=== PATIENT | female | born 1995 | race American Indian/Alaskan Native ===

== ENCOUNTER 2021-01-24 08:25 | Inpatient (IN) | payer OTHER ==
[2021-01-24] MEDS ORDERED: fentaNYL 100 MCG/2 ML INJ IV PRN (09:52)
[2021-01-24] MEDS ORDERED: BUTORPHANOL 2 MG/1 ML INJ IV PRN (09:52)
[2021-01-24] MEDS ORDERED: ePHEDrine SULFATE 50 MG/1 ML INJ IV PRN ×2 (09:52→15:00)
[2021-01-24] MEDS ORDERED: LACTATED RINGERS 1,000 ML ONE (10:03)
[2021-01-24] MEDS ORDERED: ONDANSETRON 4 MG/2 ML INJ IV PRN ×2 (10:30→17:26)
[2021-01-24] MEDS ORDERED: LIDOCAINE (2%) 20 MG/1 ML VIAL 20 ML MDV INFILTRATI SCH (10:30)
[2021-01-24] MEDS ORDERED: TERBUTALINE 1 MG/1 ML INJ SUB-Q PRN (10:30)
[2021-01-24 10:42] LABS: Hematocrit 35.5 % (30.3-42.9); Hemoglobin 12.1 gm/dl (10.1-14.3); Mean Corpuscular HGB Conc 34 % (30-34); Mean Corpuscular Volume 102 fl (79-97); Platelet Count 203 K/mm3 (140-440); Red Blood Count 3.48 M/mm3 (3.65-5.03); Red Cell Distribution Width 14.7 % (13.2-15.2)
[2021-01-24] MEDS: OXYTOCIN DRIP 30 UNITS/500 ML BAG IV SCH ×5 (10:49→17:45)
[2021-01-24] MEDS: LACTATED RINGERS 1,000 ML IV SCH (10:49)
[2021-01-24] MEDS ORDERED: MINERAL OIL 30 ML ORAL LIQD PO PRN (11:00)
[2021-01-24] MEDS ORDERED: OXYTOCIN DRIP 30 UNITS/500 ML BAG IV SCH (11:00)
--- NOTE | 2021-01-24 13:03 | History and Physical Report ---
History of Present Illness Date of examination: 01/24/21 Date of admission: 01/24/21 08:25 Chief complaint: Induction of labor secondary to post-date History of present illness: 25 yo, @ 42.0 wk gestation, initiated care with by [facility] at 8.4 wks gestation. Her has been complicated by anemia and post-date . She presents to [facility] after failed attempts to naturally induce at home. She reports positive FM. Denies any VB. Leaking of clear fluids noted at 1030 this AM. Labs: A+, antibody negative; HBsAg negative; HIV negative; rubella immune; VDRL negtive; GC/Chlamydia negative; urine culture negative; 1 hr gtt - 97; GBS negative. Past History Past Medical History: other (anemia) Family/Genetic History: cancer Social history: single, smoking (former smoker; exposed to second-hand marijuana smoke daily) - Obstetrical History Expected Date of Delivery: 01/10/21 Actual Gestation: 42 Week(s) 0 Day(s) : 2 Para: 0 Hx # Term Pregnancies: 0 Number of Pregnancies: 0 Spontaneous Abortions: 0 Induced : 1 Number of Living Children: 0 Medications and Allergies Allergies Allergy/AdvReac Type Severity Reaction Status Date / Time No Known Allergies Allergy Unverified 01/24/21 10:05 Active Meds: Active Medications Butorphanol Tartrate (Butorphanol 2 Mg/1 Ml Inj) 2 mg IV Q2H PRN PRN Reason: Pain , Severe (7-10) Last Admin: 01/24/21 10:48 Dose: 2 mg Documented by: Ephedrine Sulfate (Ephedrine Sulfate 50 Mg/1 Ml Inj) 10 mg IV Q2M PRN PRN Reason: Hypotension Fentanyl (Fentanyl 100 Mcg/2 Ml Inj) 100 mcg IV Q2H PRN PRN Reason: Pain,Severe (7-10) LABOR PAIN Oxytocin/Sodium Chloride (Pitocin/Ns 30 Unit/500ml) 30 units in 500 mls @ 2 mls/hr IV TITR ALLYN; Protocol Last Admin: 01/24/21 12:18 Dose: 2 ml/hr, 2 mls/hr Documented by: Lactated Ringer's (Lactated Ringers) 1,000 mls @ 125 mls/hr IV DIRECT ALLYN Last Admin: 01/24/21 10:49 Dose: 125 mls/hr Documented by: Oxytocin/Sodium Chloride (Pitocin/Ns 30 Unit/500ml) 30 units in 500 mls @ 40 mls/hr IV TITR ALLYN; Protocol Lidocaine (Lidocaine (2%) 20 Mg/1 Ml Vial 20 Ml Mdv) 20 ml INFILTRATI ONCE ALLYN Stop: 01/25/21 10:29 Mineral Oil (Mineral Oil 30 Ml Oral Liqd) 30 ml PO QHS PRN PRN Reason: Constipation Ondansetron HCl (Ondansetron 4 Mg/2 Ml Inj) 4 mg IV Q8H PRN PRN Reason: Nausea And Vomiting Terbutaline Sulfate (Terbutaline 1 Mg/1 Ml Inj) 0.25 mg SUB-Q ONCE PRN PRN Reason: Hyperstimulation/Hypertonicity Review of Systems All systems: negative - Vital Signs Vital signs: Vital Signs Temp Pulse Resp BP 98.2 F 83 15 121/73 01/24/21 09:57 01/24/21 09:57 01/24/21 09:57 01/24/21 09:57 Temp Pulse Resp BP Pulse Ox 98.2 F 83 15 121/73 01/24/21 09:57 01/24/21 09:57 01/24/21 09:57 01/24/21 09:57 - Physical Exam Breasts: Positive: normal Cardiovascular: Regular rate Lungs: Positive: Normal air movement Uterus: Positive: enlarged (S=D) Deep Tendon Reflex Grade: Normal +2 - Obstetrical FHR: category 1 Uterine Contraction Monitor Mode: External Cervical Dilatation: 2 (per RN) Cervical Effacement Percentage: 80 (Pitocin @ 4mu/min) station: -2 Uterine Contraction Duration: 2-5 Uterine Contraction Pattern: Irregular Uterine Tone Measurement Phase: Resting Uterine Contraction Intensity: Mild Results Result Diagrams: 01/24/21 09:00 Abnormal lab results 01/24/21 Range/Units 09:00 RBC 3.48 L (3.65-5.03) M/mm3 MCV 102 H (79-97) fl MCH 35 H (28-32) pg All other labs normal. Assessment and Plan - Patient Problems (1) Post-dates Current Visit: Yes Status: Acute Plan to address problem: Admit to L & D Pitocin titration as tolerated Pain meds as desired per orders Anticipate
[2021-01-24] MEDS ORDERED: fentaNYL-BUPIV 2 MCG/ML-0.125% 200 MCG/100 ML BAG EPIDURAL ONE (14:02)
--- NOTE | 2021-01-24 14:26 | Progress Note ---
Labor Epidural - Labor Epidural Start Time: 14:05 Stop Time: 14:12 Performed by:: JOAQUIM SEVERINO Procedure: Patient is requesting epidural for labor pain. H&P, and labs reviewed. Procedure explained, questions answered, consent obtained. Patient in sitting position with blood pressure cuff and pulse ox on and working. Timeout performed immediately before start of procedure. Sterile chlorahexadine 0.5% prep/drape. 3 mL 1% lidocaine skin wheal at L[3]-L[4]. 18-gauge Tuohy epidural needle advanced to [id number] with saline at [7] cm. Epidural dexmedetomidine [30] mcg administered. Epidural catheter advanced to [12] cm, negative aspiration for blood and csf, negative test dose 3 ml 1.5% lidocaine with epinephrine. Sterile steri-strips and tegaderm applied, followed by tape reinforcement. Patient tolerated procedure well.
--- NOTE | 2021-01-24 14:26 | Anesthesia Consultation ---
Anesthesia Consult and Med Hx Date of service: 01/24/21 - Airway Anesthetic Teeth Evaluation: Good ROM Head & Neck: Adequate Mental/Hyoid Distance: Adequate Mallampati Class: Class II Intubation Access Assessment: Probably Good - Pulmonary Exam CTA: Yes - Cardiac Exam Cardiac Exam: RRR - Pre-Operative Health Status ASA Pre-Surgery Classification: ASA3 Proposed Anesthetic Plan: Epidural - Pulmonary Hx Smoking: Yes Hx Asthma: No COPD: No Hx Pneumonia: No - Cardiovascular System Hx Hypertension: No - Central Nervous System Hx Seizures: No Hx Psychiatric Problems: No - Endocrine Hx Renal Disease: No Hx End Stage Renal Disease: No Hx Hypothyroidism: No Hx Hyperthyroidism: No - Hematic Hx Anemia: No Hx Sickle Cell Disease: No - Other Systems Hx Alcohol Use: No Hx Substance Use: Yes (Marijuana)
[2021-01-24] MEDS: fentaNYL-BUPIV 2 MCG/ML-0.125% 200 MCG/100 ML BAG EPIDURAL SCH ×2 (14:52→23:08)
[2021-01-24] MEDS ORDERED: NALOXONE 2 MG/2 ML INJ IV PRN (15:00)
[2021-01-24] MEDS ORDERED: ACETAMINOPHEN 325 MG TAB PO PRN ×2 (17:26→22:41)
[2021-01-24] MEDS ORDERED: diphenhydrAMINE 25 MG CAP PO PRN (17:26)
[2021-01-24] MEDS ORDERED: MAGNESIUM HYDROXIDE (MOM) ORAL LIQD UDC PO PRN (17:26)
[2021-01-24] MEDS ORDERED: BENZOCAINE/MENTHOL 20/0.5% TOP SPRAY 56 GM TP PRN (17:26)
[2021-01-24] MEDS ORDERED: LANOLIN/ZINC/DIMETHICONE (LANSINOH) 7 GM TP PRN ×2 (17:26)
[2021-01-24] MEDS ORDERED: oxyCODONE /ACETAMINOPHEN 5-325MG TAB PO PRN (17:26)
[2021-01-24] MEDS ORDERED: HYDROCORTISONE 25 MG RECTAL SUPP PR PRN (17:26)
[2021-01-24] MEDS ORDERED: PROMETHAZINE 25 MG RECT SUPP PR PRN (17:26)
[2021-01-24] MEDS ORDERED: WITCH HAZEL/ GLYCERIN PAD TP PRN (17:26)
[2021-01-24] MEDS ORDERED: PROMETHAZINE 25 MG TAB PO PRN (17:26)
--- NOTE | 2021-01-24 17:34 | Procedure Note ---
OB Delivery Note - Delivery Date of Delivery: 01/24/21 Surgeon: JOY HILL JR Estimated blood loss: 500cc - Vaginal Delivery presentation: vertex (vertex/vertex) Delivery position: OA Intrapartum events: hemorrhage (s/p methergine x 1), uterine atony Delivery induction: AROM (x2) Delivery augmentation: rupture of membranes, pitocin Delivery monitor: external FHT Route of delivery: Delivery placenta: spontaneous Episiotomy: none Delivery laceration: other (1 degree periurethral, not repaired) Anesthesia: epidural Delivery comments: Delivery of male infant at 1701 with subsequent delivery of female at 1705. The cord with cut by FOB x 2. The umbillical cord with clamped x 2. Spontaneous delivery of placenta. Given mild uterine atony, methergine x 1 was given. Small periurethral laceration was noted and found not be bleeding actively. Did not repair. 1701, Male, 9/9 APGARS, 2359g, 18.75 inches 1705, female, 8/9 APGARS 2549g, 18.25 inches - Infant A at 1 minute: 9 at 5 minutes: 9 Gender: Male B at 1 minute: 8 at 5 minutes: 9 Infant Gender: Female
[2021-01-24] MEDS ORDERED: IBUPROFEN 600 MG TAB PO SCH (18:00)
[2021-01-24] MEDS ORDERED: SENNOSIDES/DOCUSATE SODIUM 8.6/50 MG TAB PO SCH (18:00)
[2021-01-24] MEDS ORDERED: DOCUSATE SODIUM 100 MG CAP PO SCH (22:00)
[2021-01-24] MEDS ORDERED: FERROUS SULFATE 325 MG TAB PO SCH (22:00)
[2021-01-24] MEDS ORDERED: AMPICILLIN/NS 2 GM/100 ML 2 GM/100 ML BAG IV ONE (22:48)
[2021-01-24] MEDS ORDERED: ACETAMINOPHEN 325 MG TAB ONE (22:57)
[2021-01-25] MEDS ORDERED: METOCLOPRAMIDE 10 MG/2 ML INJ ONE (00:26)
[2021-01-25] MEDS ORDERED: FAMOTIDINE 20 MG/2 ML INJ IV ONE ×2 (00:26→01:27)
[2021-01-25] MEDS ORDERED: SODIUM CHLORIDE 0.9% IRR 1,500 ML BOTTLE IR ONE (00:37)
[2021-01-25] MEDS ORDERED: WATER FOR IRRIG STERILE 1,500 ML BOTTLE IR ONE (00:37)
[2021-01-25] MEDS ORDERED: CLINDAMYCIN IV ONE (00:55)
[2021-01-25] MEDS ORDERED: PHENYLEPHRINE/NS 1,000 MCG/10 ML SYRINGE (OR USE) IV ONE (00:56)
[2021-01-25] MEDS ORDERED: BUPIVACAINE /DEX-WATER 0.75% (2 ML) AMPULE INFILTRATI ONE (00:56)
[2021-01-25] MEDS ORDERED: KETOROLAC 30 MG/1 ML INJ ONE (00:56)
[2021-01-25] MEDS ORDERED: ceFAZolin/STERILE WATER 2 GM/20 ML SYRINGE IV NR (01:00)
[2021-01-25] MEDS ORDERED: FAMOTIDINE 20 MG/2 ML INJ IV NR (01:00)
[2021-01-25] MEDS ORDERED: LACTATED RINGERS 1,000 ML ONE (01:06)
[2021-01-25] MEDS ORDERED: BUPIVACAINE/PF (0.5%) 5 MG/1 ML 30 ML VIAL INFILTRATI ONE (01:06)
[2021-01-25] MEDS ORDERED: OXYTOCIN 10 UNIT/1 ML INJ ONE (01:18)
[2021-01-25] MEDS ORDERED: METOCLOPRAMIDE 10 MG/2 ML INJ IV ONE (01:26)
[2021-01-25] MEDS ORDERED: BICITRA ORAL LIQD 30ML PO ONE (01:26)
[2021-01-25] MEDS ORDERED: HYDROCORTISONE 25 MG RECTAL SUPP PR PRN (01:55)
[2021-01-25] MEDS ORDERED: MAGNESIUM HYDROXIDE (MOM) ORAL LIQD UDC PO PRN (01:55)
[2021-01-25] MEDS ORDERED: NALOXONE 0.4 MG/1 ML INJ IV PRN (01:55)
[2021-01-25] MEDS ORDERED: SIMETHICONE 80 MG CHEW TAB PO PRN (01:55)
[2021-01-25] MEDS ORDERED: PROMETHAZINE 25 MG RECT SUPP PR PRN (01:55)
[2021-01-25] MEDS ORDERED: LANOLIN/ZINC/DIMETHICONE (LANSINOH) 7 GM TP PRN (01:55)
[2021-01-25] MEDS ORDERED: WITCH HAZEL/ GLYCERIN PAD TP PRN (01:55)
[2021-01-25] MEDS ORDERED: ACETAMINOPHEN 325 MG TAB PO PRN (01:55)
[2021-01-25] MEDS ORDERED: MORPHINE 4 MG/1 ML INJ IV PRN (01:55)
[2021-01-25] MEDS ORDERED: oxyCODONE /ACETAMINOPHEN 5-325MG TAB PO PRN (01:55)
[2021-01-25] MEDS ORDERED: ONDANSETRON 4 MG/2 ML INJ IV PRN (01:55)
[2021-01-25] MEDS ORDERED: SENNOSIDES 8.6 MG TAB PO PRN (01:55)
--- NOTE | 2021-01-25 01:58 | Procedure Note ---
OB Delivery Note - Delivery Date of Delivery: 01/25/21 Surgeon: JOY HILL JR Estimated blood loss: other (700cc) - Section Preop diagnosis: nonreassuring FHR tracing Postop diagnosis: same section procedure: section, primary low transverse Disposition: PACU Complications: none Narrative: Indication: 25 yo, A1 @ 42.0 wk gestation, initiated care with by [facility] at 8.4 wks gestation c/b anemia and Class II Obesity presenting for postdates IOL, failed 2/2 non-reassuring heart notes and chorioamnionitis on ampicillin, gentamicin, and clindamycin, now for primary c section. Findings: Normal uterus, tubes and ovaries. Clear fluid. No nuchal cord. Delivery of male at 0114 Weight 3636g Height 20 inches APGARS 8/9 EBL 700cc IVF 1000 cc UOP 100cc Procedure: Patient was taken to the operating room prepped and draped in the usual sterile fashion. Pfannenstiel skin incision was made and carried down to the underlying fascia. Fascia was incised and the incision was distended bilaterally. Rectus fascia was dissected off the rectus muscle superiorly and inferiorly. Peritoneum was identified and entered. Peritoneal incision extended superiorly and inferiorly. The bladder was visualized. The bladder blade was placed. Uterine hysterotomy incision was made and extended bilaterally. The baby was delivered in the typical vertex fashion. Baby was bulb suction at delivery. The cord was cut and clamped and handed off to the team. The placenta was delivered spontaneously. The uterus was exteriorized and cleared of all clots and debris. Uterine incision was closed with a 0 Vicryl in a running locked fashion. Good hemostasis was noted after additional figure of eight suture x 1 to the uterine incision. Hemoblast was applied to the uterine incisional base to provide hemostasis. The urine was noted to be clear. Uterus, tubes, and ovaries were returned to the abdominal cavity. Bilateral gutters were cleared and the abdomen and pelvis were irrigated. Good hemostasis noted. The rectus muscle was reapproximated with 2- 0 Vicryl. Attention was directed towards the rectus fascia which was reapproximated with 0 PDS in a running fashion. The subcutaneous tissue was irrigated and reapproximated with 2-0 Vicryl in a running fashion. Skin was closed with a 4-0 Vicryl in a subcuticular fashion. The procedure was completed and the patient tolerated the procedure well. All instruments and lap counts were correct x2. - A at 1 minute: 8 at 5 minutes: 9 Infant Gender: Male
[2021-01-25] MEDS ORDERED: OXYTOCIN DRIP 30 UNITS/500 ML BAG IV SCH (02:00)
--- NOTE | 2021-01-25 02:17 | Progress Note ---
Regional Anesthesia Block - Regional Anesthesia Block Start Time: 02:05 Stop Time: 02:10 Performed By:: JOAQUIM SEVERINO Procedure: U/S guided bilateral tap block performed for post-operative pain requested by Dr. Jewell. H&P & labs reviewed. Procedure explained, questions answered, consent obtained. Patient in the supine position with ekg, blood pressure cuff and pulse ox on and working in PACU. Timeout performed immediately before start of procedure. Probe placed in the mid-axillary line and the external oblique, internal oblique, and transverse abdominus muscles identified. Skin was cleansed with chlorahexadine 0.5% and allowed to dry. A 4" 20 G Galdamez echogenic needle was advanced in plane until the tip was in the fascial plane between the internal oblique and the transverse abdominus. After negative aspiration 35 ml/side of [30 ml 0.5% Bupivacaine], [10 mg dexamethasone], and [40 ml sterile saline] was injected in 5 ml increments with negative aspiration in between. Patient tolerated procedure well.
--- NOTE | 2021-01-25 02:17 | Progress Note ---
Spinal Anesthesia Block - Spinal Anesthesia Block Start Time: 00:43 Stop Time: 00:45 Performed by:: JOAQUIM SEVERINO Procedure: Sitting, sterile chlorahexadine 0.5% prep/drape, 1% lidocaine skin local, 25G spinal needle + introduced at L3-4, + CSF, - Heme, [1.4 ml 0.75% bupivacaine + 10 mcg dexmedetomidine] injected, drape removed, patient positioned supine with left uterine displacement, and spinal level verified to be adequate prior to surgery.
[2021-01-25] MEDS: KETOROLAC 30 MG/1 ML INJ IV SCH ×3 (08:34→20:15)
[2021-01-25] MEDS: GENTAMICIN/NS 120MG/100ML 120 MG/100 ML BAG IV SCH ×2 (08:35→14:47)
[2021-01-25] MEDS: FERROUS SULFATE 325 MG TAB PO SCH (08:36)
[2021-01-25] MEDS: LACTATED RINGERS 1,000 ML IV SCH (08:36)
[2021-01-25] MEDS ORDERED: PRENATAL VIT27-FE FUMARATE-FOLIC ACID VIT TAB PO SCH (10:00)
[2021-01-25] MEDS: PRENATAL VIT27-FE FUMARATE-FOLIC ACID VIT TAB PO SCH (11:26)
[2021-01-25 15:13] LABS: Hematocrit 30.8 % (30.3-42.9); Hemoglobin 10.3 gm/dl (10.1-14.3)
--- NOTE | 2021-01-25 15:40 | Post Anesthesia Evaluation ---
- Post Anesthesia Evaluation Patient Participated: Yes Airway Patent: Yes Stable Respiratory Function: Yes Nausea/Vomiting: No Temp > 96.8F: Yes Pain Manageable: Yes Adequeate Hydration: Yes Anesthesia Complications: No Block Receding Appropriately: Yes
[2021-01-26] MEDS: KETOROLAC 30 MG/1 ML INJ IV SCH (02:35)
[2021-01-26] MEDS ORDERED: KETOROLAC 30 MG/1 ML INJ IV SCH (03:00)
[2021-01-26] MEDS: GENTAMICIN/NS 120MG/100ML 120 MG/100 ML BAG IV SCH (04:30)
--- NOTE | 2021-01-26 09:57 | Progress Note ---
Assessment and Plan - Patient Problems (1) S/P Current Visit: Yes Status: Acute Plan to address problem: POD1 s/p pTLCS, doing well. Meeting /postoperative goals --Anticipate discharge home tomorrow AM Subjective - Subjective Date of service: 01/26/21 Principal diagnosis: failed IOL, s/p pLTCS for NRFHTS Interval history: Patient doing well in the interval. Reports tolerating po, urinating spontaneously, passing flatus with BM, pain well controlled with po medication. Baby doing well in the room. Patient reports: appetite normal, voiding normally, pain well controlled, flatus, bowel movement, ambulating normally : doing well Objective - Vital Signs Latest vital signs: Vital Signs Temp Pulse Resp BP BP Pulse Ox 01/26/21 07:39 98.0 F 89 18 106/53 98 01/26/21 00:31 97.9 F 94 H 20 101/54 98 01/25/21 20:30 98.1 F 87 20 106/58 97 01/25/21 16:48 98.6 F 84 18 120/67 98 Intake and Output 01/25/21 01/26/21 01/26/21 23:59 07:59 15:59 Intake Total 480 240 Output Total 450 Balance -450 480 240 Intake: Oral 480 240 Output: Urine 450 Void 450 Other: Total, Intake Amount 240 240 Total, Output Amount 200 # Voids Void 1 1 1 - Exam Abdomen: Present: normal appearance, normal bowel sounds Uterus: Present: firm Extremities: Present: normal Incision: Present: normal, intact
--- NOTE | 2021-01-26 09:58 | Discharge Summary ---
Providers - Providers Date of Admission: 01/24/21 08:25 Date of discharge: 01/27/21 Attending physician: JOY HILL JR, MD Primary care physician: JOY HILL JR, MD Hospitalization Reason for admission: induction of labor (for postdates gestation) Delivery: Procedure: section, primary low transverse (for NRFHTS) Incision: normal, intact complications: none Discharge diagnosis: IUP at term delivered [place] baby: male Hospital course: 25 yo, A1 @ 42.0 wk gestation, initiated care with by [facility] at 8.4 wks gestation c/b anemia and Class II Obesity presenting for postdates IOL, failed 2/2 non-reassuring heart notes and chorioamnionitis on ampicillin, gentamicin, and clindamycin, s/p primary c section on 01/25/21. No further fevers and Antibiotics d/c'd on POD1. Meeting all /postoperative goals on POD1 and discharge in good condition of POD2. Condition at discharge: Good Disposition: DC-01 TO HOME OR SELFCARE - Discharge Diagnoses (1) S/P Status: Acute Plan - Discharge Medications Prescriptions: Ibuprofen [Motrin 800 MG tab] 800 mg PO Q6H PRN #30 tablet PRN Reason: Pain, Mild (1-3) oxyCODONE /ACETAMINOPHEN [Percocet 5/325 mg] 1 tab PO Q6H PRN #30 tablet PRN Reason: Pain, Moderate (4-6) - Provider Discharge Summary Activity: no sex for 6 weeks, no heavy lifting 4 weeks, no strenuous exercise Diet: routine Instructions: routine Additional instructions: [] Smoking cessation referral if applicable(refer to patient education folder for contact #) [] Refer to [facility]'s [facility] Booklet Call your doctor immediately for: * Fever > 100.5 * Heavy vaginal bleeding ( >1 pad per hour) * Severe persistent headache * Shortness of breath * Reddened, hot, painful area to leg or breast * Drainage or odor from incision. * Keep incision clean and dry at all times and follow doctor's instructions regarding bathing/showering - Follow up plan Follow up: JOY HILL JR, MD [Primary Care Provider] - 14 Days
[2021-01-26] MEDS: PRENATAL VIT27-FE FUMARATE-FOLIC ACID VIT TAB PO SCH (12:45)
[2021-01-26] MEDS: FERROUS SULFATE 325 MG TAB PO SCH (12:45)
[2021-01-26] MEDS: IBUPROFEN 800 MG TAB PO PRN ×2 (12:45→20:41)
[2021-01-27] MEDS: IBUPROFEN 800 MG TAB PO PRN (08:08)
[2021-01-27] MEDS: FERROUS SULFATE 325 MG TAB PO SCH (09:37)
[2021-01-27] MEDS: PRENATAL VIT27-FE FUMARATE-FOLIC ACID VIT TAB PO SCH (09:37)
[2021-01-27 13:14] VITALS: BP 115/53
== END 2021-01-27 12:45 | disposition home or self-care (01) | DRG 786 ==
LOC: LD 08:25 → OB 01-25 03:08
PROVIDERS: ADMIT Obstetrics & Gynecology; ATTEND Obstetrics & Gynecology
PROC: 3E0R3BZ Introduction of Anesthetic Agent into Spinal Canal, Percutaneous Approach (ICD-10-PCS; principal; 2021-01-24)
PROC: 10E0XZZ Delivery of Products of Conception, External Approach (ICD-10-PCS; 2021-01-24)
PROC: 00HU33Z Insertion of Infusion Device into Spinal Canal, Percutaneous Approach (ICD-10-PCS; 2021-01-24)
PROC: 10907ZC Drainage of Amniotic Fluid, Therapeutic from Products of Conception, Via Natural or Artificial Opening (ICD-10-PCS; 2021-01-24)
PROC: 3E0T3BZ Introduction of Anesthetic Agent into Peripheral Nerves and Plexi, Percutaneous Approach (ICD-10-PCS; 2021-01-24)
PROC: 10D00Z1 Extraction of Products of Conception, Low, Open Approach (ICD-10-PCS; 2021-01-25)
DX: O76 Abnormality in fetal heart rate and rhythm complicating labor and delivery (principal); O41.1230 Chorioamnionitis, third trimester, not applicable or unspecified; O48.0 Post-term pregnancy; O99.02 Anemia complicating childbirth; D64.9 Anemia, unspecified; Z3A.42 42 weeks gestation of pregnancy; Z20.822 Contact with and (suspected) exposure to COVID-19; Z87.891 Personal history of nicotine dependence; Z37.0 Single live birth; O99.214 Obesity complicating childbirth
CPT/HCPCS: 36415; 82565; 85014; 85018; 85027; 86850; 86900; 86901; 88307; G0378; J0290; J0595; J1580; J1885; J2370; J2590; J2765; J3490; J7120; U0003